=== PATIENT | male | born 1980 | race Caucasian/White ===

== ENCOUNTER → 2024-10-05 | Day surgery (SDC) | payer BC ==
[~2024-10-05] MED LIST: Lidocaine 2% 100 MG/5 ML Syringe IVPUSH ONE; Propofol 200 MG/20 ML SDV IV ONE; Sodium Chloride 0.9% 10 ML Syringe FLUSH PRN
[2024-10-05] MEDS: Lactated Ringers 1,000 ML IV SCH (07:21)
[2024-10-05] MEDS: Simethicone Drops 40 MG/0.6 ML 30 ML Bottle ONE (07:37)
[2024-10-05] MEDS: Iopamidol 755 Mg/ML 100 ML Bottle IV SCH (11:46)
[2024-10-06 23:36] LABS: CARCINOEMBRYONIC ANTIGEN 0.9 ng/mL (<=3.8)
== END ==
LOC: FB.SDS 06:17
PROVIDERS: ATTEND Surgery
DX: C18.9 Malignant neoplasm of colon, unspecified (principal); K21.9 Gastro-esophageal reflux disease without esophagitis; F32.A Depression, unspecified; Z79.899 Other long term (current) drug therapy
CPT/HCPCS: 36415; 45380; 45381; 74177; 82378; 88305; 88341; 88342; A9270; J2704; J7120; Q9967; 00811